=== PATIENT | male | born 1990 | race Caucasian/White ===

== ENCOUNTER 2016-08-09 13:20 | Emergency (ER) | payer OTHER ==
[2016-08-09 13:42] VITALS: RESP 16; TEMP 97.6; O2SAT 99
[2016-08-09 13:49] VITALS: BP 119/85; PULSE 108
== END 2016-08-09 14:10 | disposition home or self-care (01) | DRG 951 ==
LOC: ED 13:20
DX: Z20.2 Contact with and (suspected) exposure to infections with a predominantly sexual mode of transmission (principal)
CPT/HCPCS: 99282